=== PATIENT | female | born 1995 | race African-American/Black ===

== ENCOUNTER 2021-10-14 01:45 | Emergency (ER) | payer OTHER, SELFPAY ==
[2021-10-14 01:45] VITALS: BP 167/91; PULSE 82; RESP 18; TEMP 36.9; O2SAT 96
--- NOTE | 2021-10-14 02:44 | ED.GENADULT ---
HPI - General Adult General Chief complaint: Unspecified Stated complaint: 17 weeks , decrease in movement. Time Seen by Provider: 10/14/21 02:03 History of Present Illness HPI narrative: Patient is a 26-year-old female who presents ER with concerns regarding her . Patient is a G4, P2 EAB 1. Patient is 17 weeks along in her reports she has not felt the baby move for 2 days. She has not yet established care with an OB. No vaginal bleeding or vaginal discharge. No abdominal pain. No fevers chills or sweats. No urinary frequency urgency or dysuria. No nausea or vomiting. Related Data Allergies Allergy/AdvReac Type Severity Reaction Status Date / Time No Known Allergies Allergy Unverified 09/16/16 14:16 Review of Systems Review of Systems: All systems reviewed & are unremarkable except as noted in HPI and below Constitutional: Constitutional: Denies chills, Denies fever(s) and Denies weakness Gastrointestinal: Gastrointestinal: Denies abdominal pain, Denies nausea and Denies vomiting Genitourinary: Genitourinary: Denies abnormal vaginal bleeding, Denies nocturia, Denies dysuria and Denies vaginal discharge Exam Narrative: GENERAL: Well-appearing, well-nourished, and in no acute distress. HEAD: Normocephalic, atraumatic. CHEST: Clear to auscultation. No respiratory distress. HEART: Regular rate and rhythm. Normal peripheral pulses. ABDOMEN: Soft, nontender, nondistended. EXTREMITIES: Normal range of motion. No edema. NEURO: Alert and oriented x3. PSYCH: Normal mood and affect. Course Course Emergency Course: Bedside ultrasound shows intrauterine with positive movement and heart tones. Patient visualized images with this physician. No formal ultrasound available at this time tonight. Recommend follow-up with OB. Vital Signs Vital signs: Vital Signs Temperature 98.4 F 10/14/21 01:45 Pulse Rate 82 10/14/21 01:45 Respiratory Rate 18 10/14/21 01:45 Blood Pressure 167/91 H 10/14/21 01:45 Pulse Oximetry 96 10/14/21 01:45 Oxygen Delivery Room Air 10/14/21 01:45 Temperature 98.4 F 10/14/21 01:45 Pulse Rate 82 10/14/21 01:45 Respiratory Rate 18 10/14/21 01:45 Blood Pressure 167/91 H 10/14/21 01:45 Pulse Oximetry 96 10/14/21 01:45 Oxygen Delivery Room Air 10/14/21 01:45 Medical Decision Making Vital Signs Vital Signs: Vital Signs Temperature 98.4 F 10/14/21 01:45 Pulse Rate 82 10/14/21 01:45 Respiratory Rate 18 10/14/21 01:45 Blood Pressure 167/91 H 10/14/21 01:45 Pulse Oximetry 96 10/14/21 01:45 Oxygen Delivery Room Air 10/14/21 01:45 Temperature 98.4 F 10/14/21 01:45 Pulse Rate 82 10/14/21 01:45 Respiratory Rate 18 10/14/21 01:45 Blood Pressure 167/91 H 10/14/21 01:45 Pulse Oximetry 96 10/14/21 01:45 Oxygen Delivery Room Air 10/14/21 01:45 Discharge Plan Discharge Clinical Impression: Patient Disposition: Home, Self-Care Condition: Stable Instructions: (ED) Additional Instructions: Follow-up with an combination machine tender for further care during your . Return to the ER if you have vaginal bleeding, you have severe abdominal pain, you have additional concerns. Follow-up/Referrals: Eliot Hernandez MD [Primary Care Provider] - Gabriel Matias MD [Physician] - 1 Week
[2021-10-14 03:04] VITALS: BP 119/51; PULSE 89; RESP 17; O2SAT 99
== END 2021-10-14 03:06 | disposition home or self-care (01) ==
PROVIDERS: Emergency Provider Emergency Medicine; PCP Emergency Medicine
DX: Z34.82 Encounter for supervision of other normal pregnancy, second trimester (principal); Z3A.17 17 weeks gestation of pregnancy
CPT/HCPCS: 99282

== ENCOUNTER 2022-01-15 00:18 | Observation (INO) | payer OTHER, SELFPAY ==
[2022-01-15] VITALS (31 sets, daily range): BP systolic 119–139; BP diastolic 54–92; PULSE 84–114; O2SAT 96–100; BMI 53.1
[2022-01-15] MEDS: TERBUTALINE SULFATE 1 MG/ML VIAL 0.25 MG SUB-Q (03:15)
[2022-01-15] MEDS: CALCIUM CARBONATE (TUMS) 500 MG (200 MG ELEMENTAL) PO (05:03)
--- NOTE | 2022-02-16 22:14 | PM.OBTRLD ---
OB - Triage/Final Diagnosis Visit Information Comments/Additional reasons for admission: I have assessed the risk for this patient, Massiel Vance, and determined that she would benefit from observation care. Final Diagnosis (1) False labor: Code(s): O47.9 - False labor, unspecified Status: Acute
== END 2022-01-15 05:00 | disposition home or self-care (01) ==
LOC: ANHOBPP 00:25
PROVIDERS: Admitting Provider Obstetrics & Gynecology; PCP Emergency Medicine; Visit Provider Obstetrics & Gynecology
DX: O47.9 False labor, unspecified (principal); Z3A.00 Weeks of gestation of pregnancy not specified
CPT/HCPCS: 96372; A9270; G0378; G0379; J3105